=== PATIENT | female | born 1985 | race Caucasian/White ===

== ENCOUNTER 2024-02-29 15:45 | Outpatient (CLI) | payer MEDICARE, MEDICAID, SELFPAY | END 2024-02-29 23:59 | disposition home or self-care (01) | LOC: LAB.DROPOF 03-01 09:46 | PROVIDERS: PCP Family Medicine; Visit Provider Nurse Practitioner Family | DX: N39.0 Urinary tract infection, site not specified (principal) | CPT/HCPCS: 87086; 87088; 87186 ==

== ENCOUNTER 2024-05-16 14:27 | Observation (INO) | payer MEDICARE, MEDICAID, SELFPAY ==
[2024-05-16] VITALS (17 sets, daily range): BP systolic 141–189; BP diastolic 75–119; PULSE 62–102; RESP 12–22; TEMP 36.6–37.2; O2SAT 95–98; BMI 29.7
--- NOTE | 2024-05-16 14:25 | ECG_ITS ---
APPROVED REPORT Exam: Resting ECG HR:76 bpm ECG Measurements Heart Rate 76 AXES OK 272 P 83 QRSd 186 QRS -81 QT 460 T 90 QTc 491 Conclusion ELECTRONIC VENTRICULAR PACEMAKER ABNORMAL RHYTHM ECG Electronically signed by : DIVYA BUCKLEY, 05/17/2024 15:43:23
--- NOTE | 2024-05-16 14:42 | XR_ITS ---
FINAL REPORT CLINICAL HISTORY: CP, high BP COMPARISON: None FINDINGS: Mild cardiomegaly is present. The mediastinum is normal. A left subclavian pacemaker is present. There is no focal infiltrate or edema. There are no pleural effusions. There is no pneumothorax. There is no osseous abnormality. There are rib fractures on the right side involving the 2nd through 5th ribs, that appear chronic. IMPRESSION: No acute cardiopulmonary process Reviewed, Interpreted and Dictated by Lazaro Antonio MD Transcribed by Tiki Zurita Authenticated and [facility]
[2024-05-16 14:54] LABS: Basophils # 0.1 K/mm3 (0-0.2); Basophils % 0.5 % (0.1-2.0); Eosinophils # 0.1 K/mm3 (0.0-0.4); Eosinophils % 1.4 % (0.1-12.0); Hematocrit 40.8 % (37.0-47.0); Hemoglobin 13.5 g/dL (12.2-16.2); Lymphocytes # 2.5 K/mm3 (0.7-4.5); Lymphocytes % 24.8 % (10-50); Mean Corpuscular HGB Conc 33.1 g/dL (31.8-35.4); Mean Corpuscular Hemoglobin 30.2 pg (27.0-31.2); Mean Corpuscular Volume 91.3 fl (81-99); Mean Platelet Volume 10.4 fl (7.4-10.4); Monocytes # 0.5 K/mm3 (0.1-1.0); Monocytes % 5.3 % (1.7-9.3); Neutrophils # 6.7 K/mm3 (1.8-7.8); Neutrophils % 67.8 % (37.0-80.0); Platelet Count 298 K/mm3 (142-424); Red Blood Count 4.47 M/mm3 (4.20-5.40); Red Cell Distribution Width 13.2 % (11.5-17.5); White Blood Count 9.9 K/mm3 (4.8-10.8)
[2024-05-16] MEDS: LABETALOL 20MG/4ML SYRINGE 20 MG IV (14:55)
[2024-05-16] MEDS: NITROGLYCERIN 0.4MG SL TABLET 0.4 MG SL (14:58)
[2024-05-16] MEDS: ONDANSETRON 4MG/2ML VIAL 4 MG IV ×2 (14:59→19:19)
--- NOTE | 2024-05-16 15:02 | ED_ITS ---
Discharge Plan Disposition Patient Disposition: Admitted Condition: Good Clinical Impressions Clinical Impression: Takotsubo cardiomyopathy, Chest pain Discharge ED Provider: Roxi Proctor HPI <Carine Gasca MD - Last Filed: 05/16/24 15:46> General Chief Complaint: Chest Pain Stated Complaint: CP Time Seen by Provider: 05/16/24 14:33 Mode of Arrival: EMS Source of Information: Patient Limitations: No Limitations Description of Symptoms (Recalled from ER Triage Doc. by RN): pt presents to ED with c/o chest pain. symptoms began today approx 1.5 hours ago. pt reports that she has been stressed. pt gets most of care at [facility] in [facility]. pt has extensive heart history and has a pacemaker. History of Present Illness HPI narrative: Patient is a 38-year-old female presenting with chest pain. Patient notes chest pain started approximately 1-1/2 hours prior to arrival and is centrally located. Patient describes pain radiating to her left arm with associated numbness and tingling in her fingertips. Pain also radiates to her left upper abdomen. Patient noted initial diaphoresis and shortness of breath secondary to pain. Patient has a history of Takotsubo cardiomyopathy with prior cardiac arrest and AICD placement. Patient states having an NSTEMI in December 2023 with a negative cardiac cath and an echo with an EF of approximately 20%. Patient states she took aspirin and additional aspirin was given by EMS as well as nitro. Patient states she took her blood pressure at home and it was in the 220s systolics over 100s. Patient currently complaining of headache, chest pain and paresthesias in the fingers of left hand. Related Data Home Medications ?Medication ?Instructions ?Recorded ?Confirmed carvedilol 6.25 mg tablet 6.25 mg PO HS 02/29/24 05/16/24 fluoxetine 40 mg capsule 80 mg PO HS 02/29/24 05/16/24 sacubitril 24 mg-valsartan 26 mg 1 tab PO HS 02/29/24 05/16/24 tablet (Entresto) diclofenac sodium 75 mg 75 mg PO BID 05/16/24 05/16/24 tablet,delayed release hydroxyzine pamoate 25 mg capsule 25 mg PO TID 05/16/24 05/16/24 (Vistaril) Allergies Allergy/AdvReac Type Severity Reaction Status Date / Time ciprofloxacin Allergy Severe Other Verified 02/29/24 15:40 Sulfa (Sulfonamide Allergy Mild Swelling Verified 02/29/24 15:40 Antibiotics) of Lip/Tongue/Throat morphine Allergy Other Verified 05/16/24 15:00 bactrim Allergy Mild Swelling Uncoded 02/29/24 15:40 of Lip/Tongue/Throat pitocin Allergy Mild itching Uncoded 02/29/24 15:40 [facility] <Carine Gasca MD - Last Filed: 05/16/24 15:46> [facility] Disclaimer: The information contained in this section may have been updated after the patient was seen, as this information can be updated by other users. Medical History Urinary tract infection H/O angiography Ureteral stenosis of kidney transplant Depression Kidney stones High blood pressure Takotsubo cardiomyopathy Surgical History (Updated 05/16/24 @ 20:23 by Bonnie Gilman RN) Hx of tonsillectomy History of bladder surgery History of hand surgery Family History (Updated 05/16/24 @ 20:23 by Bonnie Gilman RN) Mother FHx: mental illness Cancer Father Diabetes FHx: mental illness Hypertension Grandfather Diabetes Family/Other Diabetes FHx: mental illness Hypertension Sister FHx: mental illness Grandmother Hypertension Other Metastatic melanoma Social History (Updated 05/16/24 @ 20:23 by Bonnie Gilman RN) Smoking Status: Current every day smoker tobacco type: cigarettes and e- cigarettes alcohol intake: never substance use type: denies use current occupational status: disabled Travel in the last 8 weeks: None Have you lived/traveled outside [place] in past 30 days?: No Contact w/someone who lives/traveled outside US past 30 days?: No Exposure to someone with infectious disease in past 14 days?: No Do you have a fever (greater than 100.4 F or 38 C)?: No Have you tested positive for COVID-19: No Exposed to someone with COVID-19 in past 14 days?: No Do you have a sore throat?: No Do you have a cough?: No Do you have any weakness?: No Are you experiencing any nausea/vomitting?: No Do you have any diarrhea?: No Are you experiencing any unusual bleeding?: No Do you have any muscle aches/pain?: No Do you have any abdominal pain?: No Are you experiencing loss of taste or smell?: No Other Medical History Have you received the Pneumonia Vaccine: No <Carine Gasca MD - Last Filed: 05/16/24 15:46> ROS Obtained: Yes All systems reviewed & no additional complaints except as documented Physical Exam <Carine Gasca MD - Last Filed: 05/16/24 15:46> General General appearance: alert, anxious and in distress Head Head exam: atraumatic Eye Eye exam: Present EOMI; Absent scleral icterus ENT ENT exam: Present normal exam Neck Neck exam: Present full ROM Expanded Neck Exam Neck exam focused ED: Absent JVD Chest Chest inspection: Present symmetric chest wall rise Respiratory Respiratory exam: Present normal lung sounds bilaterally Cardiovascular Cardiovascular exam: Present regular rate and normal rhythm (V paced) Abdominal Exam Abdominal exam: Present soft; Absent distention or tenderness Extremities Exam Extremities exam: Present full ROM; Absent edema Neurological Exam Neurological exam: Present alert and oriented X3 Psychiatric Psychiatric exam: Present normal mood Skin Skin exam: Present warm and dry HEART Score <Carine Gasca MD - Last Filed: 05/16/24 15:46> HEART Score HEART Score assessment performed?: Yes History (anamnesis): Highly suspicious ECG: Non-specific disturbance Age: <45 years Risk factors: 1-2 risk factors Troponin: </= normal limit HEART Score: 4 <Roxi Proctor DO - Last Filed: 05/16/24 22:51> HEART Score HEART Score: 4 Critical Care <Carine Gasca MD - Last Filed: 05/16/24 15:46> Critical Care Time Critical Care Time: Yes Attestation: On 05/16/24, the high probability of a clinically significant, sudden or life threatening deterioration of the following system(s) required my full and direct attention, intervention and personal management. The time I documented below is in addition to time spent performing reported procedures but includes the following listed in this critical care notation. Total Time Total Critical Care Time: 30 Medical Decision Making <Carine Gasca MD - Last Filed: 05/16/24 15:46> Medical Records Medical records reviewed: Yes I reviewed the patient's medical records. Vel Inquiry Pt receiving controlled substance: No Vital Signs Vital Signs: 05/16/24 14:27 05/16/24 14:31 05/16/24 14:55 Temperature 98.9 F Temperature Source Oral Pulse Rate 102 H Pulse Rate [Left Radial] 80 Respiratory Rate 12 22 Blood Pressure 188/101 H 188/101 H Blood Pressure [Right Arm] 188/101 H Blood Pressure Mean Blood Pressure Mean [Right Arm] 130 02 Sat by Pulse Oximetry 96 97 Oxygen Delivery Method Room Air Room Air 05/16/24 15:00 05/16/24 15:27 05/16/24 15:30 Temperature Temperature Source Pulse Rate 89 66 72 Pulse Rate [Left Radial] Respiratory Rate 14 12 12 Blood Pressure 173/119 H 144/100 H 144/91 H Blood Pressure [Right Arm] Blood Pressure Mean Blood Pressure Mean [Right Arm] 02 Sat by Pulse Oximetry 98 98 97 Oxygen Delivery Method Room Air 05/16/24 15:31 05/16/24 16:00 05/16/24 16:23 Temperature Temperature Source Pulse Rate 69 62 Pulse Rate [Left Radial] Respiratory Rate 14 14 Blood Pressure 143/90 H 152/83 H 155/87 H Blood Pressure [Right Arm] Blood Pressure Mean 102 Blood Pressure Mean [Right Arm] 02 Sat by Pulse Oximetry 98 95 Oxygen Delivery Method Room Air Room Air 05/16/24 16:30 05/16/24 17:00 05/16/24 17:30 Temperature Temperature Source Pulse Rate 64 64 63 Pulse Rate [Left Radial] Respiratory Rate 12 13 13 Blood Pressure 147/86 H 141/80 H 148/84 H Blood Pressure [Right Arm] Blood Pressure Mean Blood Pressure Mean [Right Arm] 02 Sat by Pulse Oximetry 97 98 98 Oxygen Delivery Method Room Air Room Air Room Air 05/16/24 18:00 05/16/24 18:30 05/16/24 19:48 Temperature 97.9 F Temperature Source Oral Pulse Rate 62 62 72 Pulse Rate [Left Radial] Respiratory Rate 12 12 16 Blood Pressure 141/80 H 159/85 H 189/82 H Blood Pressure [Right Arm] Blood Pressure Mean Blood Pressure Mean [Right Arm] 02 Sat by Pulse Oximetry 97 95 Oxygen Delivery Method Room Air Room Air Room Air Lab Data Lab results reviewed: Yes I reviewed the patient's lab results. Labs: Lab Results 05/16/24 14:33: WBC 9.9, RBC 4.47, Hgb 13.5, Hct 40.8, MCV 91.3, MCH 30.2, MCHC 33.1, RDW 13.2, Plt Count 298, MPV 10.4, Neut % (Auto) 67.8, Lymph % (Auto) 24.8, [place] % (Auto) 5.3, Eos % (Auto) 1.4, Baso % (Auto) 0.5, Neut # (Auto) 6.7, Lymph # (Auto) 2.5, [place] # (Auto) 0.5, Eos # (Auto) 0.1, Baso # (Auto) 0.1, D- Dimer 0.40, Sodium 142, Potassium 4.0, Chloride 108 H, Carbon Dioxide 23, Anion Gap 15.0, BUN 10, Creatinine 0.50 L, Estimated Creat Clear 215, Estimated GFR 137, Est GFR ( Amer) 165, Glucose 101 H, Calcium 9.3, Total Bilirubin 0.4, AST 26, ALT 21, Alkaline Phosphatase 103, Troponin I 0.02, NT-Pro-B Natriuret Pep 422 H, Total Protein 7.1, Albumin 4.3, Globulin 2.8, Albumin/Globulin Ratio 1.5, Serum HCG, Qual Negative, HCV Ab NAIMA w/Rflx PCR Qn Negative, HIV Ag/Ab Combo Qual Negative 05/16/24 16:53: Troponin I 0.03 05/16/24 14:33 05/16/24 14:33 Response Orders (Tests/Meds): ED MEDICATIONS Generic Name Dose Route Start Last Admin Trade Name Freq PRN Reason Stop Dose Admin Belladonna Alkaloids 60 ml 05/16/24 22:03 05/16/24 22:47 Belladonna Alkaloids 60 Ml Ml PO 05/16/24 22:04 60 ml ONCE ONE Administration Carvedilol 6.25 mg 05/17/24 21:00 Carvedilol 6.25mg Tablet PO 06/16/24 20:59 HS LAYNE Famotidine 20 mg 05/16/24 22:04 05/16/24 22:47 Famotidine 20mg/2ml Vial IV 05/16/24 22:05 20 mg ONCE ONE Administration Hydromorphone HCl 1 mg 05/16/24 18:44 05/16/24 19:20 Hydromorphone 2mg/Ml Syringe IV 05/16/24 18:45 1 mg ONCE ONE Administration Hydroxyzine Pamoate 25 mg 05/17/24 09:00 Hydroxyzine Pamoate 25mg Capsule PO 06/16/24 08:59 TID LAYNE Morphine Sulfate 2 mg 05/16/24 22:02 Morphine 2mg/Ml Syringe IV 06/15/24 22:01 Q2HP PRN Severe Pain (7-10) Nitroglycerin 0.4 mg 05/16/24 14:41 05/16/24 14:58 Nitroglycerin 0.4mg Sl Tablet SL 05/17/24 14:42 0.4 mg Q5MINP PRN Administration Chest Pain Non-Formulary Medication 75 mg 05/17/24 09:00 Diclofenac Sodium PO 06/16/24 08:59 BID LAYNE Non-Formulary Medication 80 mg 05/17/24 21:00 Fluoxetine PO 06/16/24 20:59 HS LAYNE Ondansetron HCl 4 mg 05/16/24 18:44 05/16/24 19:19 Ondansetron 4mg/2ml Vial IV 05/16/24 18:45 4 mg ONCE ONE Administration Sacubitril/Valsartan 1 each 05/17/24 21:00 Sacubitril/Valsartan 24-26mg Tablet PO 06/16/24 20:59 HS [facility] Sodium Chloride 8 ml 05/16/24 22:04 05/16/24 22:47 Sodium Chloride 0.9% 10ml Vial IV 06/15/24 22:03 8 ml NEEDED PRN Administration dilute famotidine Discontinued Medications Generic Name Dose Route Start Last Admin Trade Name Freq PRN Reason Stop Dose Admin Hydromorphone HCl 1 mg 05/16/24 14:41 05/16/24 14:57 Hydromorphone 4 Mg/Ml Syringe IV 05/16/24 14:42 1 mg ONCE ONE Administration Labetalol HCl 20 mg 05/16/24 14:41 05/16/24 14:55 Labetalol 20mg/4ml Syringe IV 05/16/24 14:42 20 mg ONCE ONE Administration Ondansetron HCl 4 mg 05/16/24 14:41 05/16/24 14:59 Ondansetron 4mg/2ml Vial IV 05/16/24 14:42 4 mg ONCE ONE Administration ORDERS Category Date Time Status Cardiology Consult [Consult to Cardiology] [CONS] Cons 05/16/24 16:17 Active Routine XR chest portable Stat Exams 05/16/24 14:42 Completed Complete Blood Count Auto Diff Stat Lab 05/16/24 14:33 Completed Comprehensive Metabolic Panel Stat Lab 05/16/24 14:33 Completed D-Dimer Stat Lab 05/16/24 14:33 Completed HCG Qualitative, Serum Stat Lab 05/16/24 14:33 Completed HIV Combo Stat Lab 05/16/24 14:33 Completed Hepatitis C Ab Qual. W/ RFX Stat Lab 05/16/24 14:33 Completed NT Pro Brain Natriuretic Pep. Stat Lab 05/16/24 14:33 Completed Troponin I Q2H Lab 05/16/24 16:53 Completed Troponin I Q2H Lab 05/16/24 19:32 Completed Troponin I Q2H Lab 05/16/24 21:35 Completed Troponin I Q2H Lab 05/16/24 23:45 Ordered Troponin I Stat Lab 05/16/24 14:33 Completed CA echo doppler complete Stat Y 05/16/24 16:30 Completed ECG Data Tracing #1: ECG Narrative: V paced with a rate of 76, PA prolongation at 272, mild QTc prolongation at 491, no significant ST elevation/depression MDM Narrative Medical Decision Narrative: In summary, patient is a 38-year-old female presenting with chest pain. Differential diagnosis includes but is not limited to, ACS, PE, hypertensive emergency, NSTEMI, myocarditis, pneumonia, among others. Patient has a medical history significant for Takotsubo cardiomyopathy s/p AICD and cardiac arrest. Patient is followed by cardiology at [facility] in [place]. Patient evaluated with CBC, CMP, D-dimer, troponin, CXR, EKG, beta-hCG. Medically managed with IV labetalol, Dilaudid, Zofran. Laboratory evaluation significant for no leukocytosis, anemia, thrombocytopenia. CMP with no actionable findings. Beta-hCG negative. CXR personally reviewed by me with appropriately placed AICD leads and AICD in left upper chest, no significant pleural effusion, pneumothorax, acute consolidation. Patient ultimately signed out to oncoming provider pending troponins and continued evaluation of BP management. <Roxi Proctor, DO - Last Filed: 05/16/24 22:51> Vital Signs Vital Signs: 05/16/24 14:27 05/16/24 14:31 05/16/24 14:55 Temperature 98.9 F Temperature Source Oral Pulse Rate 102 H Pulse Rate [Left Radial] 80 Respiratory Rate 12 22 Blood Pressure 188/101 H 188/101 H Blood Pressure [Right Arm] 188/101 H Blood Pressure Mean Blood Pressure Mean [Right Arm] 130 02 Sat by Pulse Oximetry 96 97 Oxygen Delivery Method Room Air Room Air 05/16/24 15:00 05/16/24 15:27 05/16/24 15:30 Temperature Temperature Source Pulse Rate 89 66 72 Pulse Rate [Left Radial] Respiratory Rate 14 12 12 Blood Pressure 173/119 H 144/100 H 144/91 H Blood Pressure [Right Arm] Blood Pressure Mean Blood Pressure Mean [Right Arm] 02 Sat by Pulse Oximetry 98 98 97 Oxygen Delivery Method Room Air 05/16/24 15:31 05/16/24 16:00 05/16/24 16:23 Temperature Temperature Source Pulse Rate 69 62 Pulse Rate [Left Radial] Respiratory Rate 14 14 Blood Pressure 143/90 H 152/83 H 155/87 H Blood Pressure [Right Arm] Blood Pressure Mean 102 Blood Pressure Mean [Right Arm] 02 Sat by Pulse Oximetry 98 95 Oxygen Delivery Method Room Air Room Air 05/16/24 16:30 05/16/24 17:00 05/16/24 17:30 Temperature Temperature Source Pulse Rate 64 64 63 Pulse Rate [Left Radial] Respiratory Rate 12 13 13 Blood Pressure 147/86 H 141/80 H 148/84 H Blood Pressure [Right Arm] Blood Pressure Mean Blood Pressure Mean [Right Arm] 02 Sat by Pulse Oximetry 97 98 98 Oxygen Delivery Method Room Air Room Air Room Air 05/16/24 18:00 05/16/24 18:30 05/16/24 19:48 Temperature 97.9 F Temperature Source Oral Pulse Rate 62 62 72 Pulse Rate [Left Radial] Respiratory Rate 12 12 16 Blood Pressure 141/80 H 159/85 H 189/82 H Blood Pressure [Right Arm] Blood Pressure Mean Blood Pressure Mean [Right Arm] 02 Sat by Pulse Oximetry 97 95 Oxygen Delivery Method Room Air Room Air Room Air Lab Data Labs: Lab Results 05/16/24 14:33: WBC 9.9, RBC 4.47, Hgb 13.5, Hct 40.8, MCV 91.3, MCH 30.2, MCHC 33.1, RDW 13.2, Plt Count 298, MPV 10.4, Neut % (Auto) 67.8, Lymph % (Auto) 24.8, [place] % (Auto) 5.3, Eos % (Auto) 1.4, Baso % (Auto) 0.5, Neut # (Auto) 6.7, Lymph # (Auto) 2.5, [place] # (Auto) 0.5, Eos # (Auto) 0.1, Baso # (Auto) 0.1, D- Dimer 0.40, Sodium 142, Potassium 4.0, Chloride 108 H, Carbon Dioxide 23, Anion Gap 15.0, BUN 10, Creatinine 0.50 L, Estimated Creat Clear 215, Estimated GFR 137, Est GFR ( Amer) 165, Glucose 101 H, Calcium 9.3, Total Bilirubin 0.4, AST 26, ALT 21, Alkaline Phosphatase 103, Troponin I 0.02, NT-Pro-B Natriuret Pep 422 H, Total Protein 7.1, Albumin 4.3, Globulin 2.8, Albumin/Globulin Ratio 1.5, Serum HCG, Qual Negative, HCV Ab NAIMA w/Rflx PCR Qn Negative, HIV Ag/Ab Combo Qual Negative 05/16/24 16:53: Troponin I 0.03 Response Orders (Tests/Meds): ED MEDICATIONS Generic Name Dose Route Start Last Admin Trade Name Freq PRN Reason Stop Dose Admin Belladonna Alkaloids 60 ml 05/16/24 22:03 05/16/24 22:47 Belladonna Alkaloids 60 Ml Ml PO 05/16/24 22:04 60 ml ONCE ONE Administration Carvedilol 6.25 mg 05/17/24 21:00 Carvedilol 6.25mg Tablet PO 06/16/24 20:59 HS [facility] Famotidine 20 mg 05/16/24 22:04 05/16/24 22:47 Famotidine 20mg/2ml Vial IV 05/16/24 22:05 20 mg ONCE ONE Administration Hydromorphone HCl 1 mg 05/16/24 18:44 05/16/24 19:20 Hydromorphone 2mg/Ml Syringe IV 05/16/24 18:45 1 mg ONCE ONE Administration Hydroxyzine Pamoate 25 mg 05/17/24 09:00 Hydroxyzine Pamoate 25mg Capsule PO 06/16/24 08:59 TID [facility] Morphine Sulfate 2 mg 05/16/24 22:02 Morphine 2mg/Ml Syringe IV 06/15/24 22:01 Q2HP PRN Severe Pain (7-10) Nitroglycerin 0.4 mg 05/16/24 14:41 05/16/24 14:58 Nitroglycerin 0.4mg Sl Tablet SL 05/17/24 14:42 0.4 mg Q5MINP PRN Administration Chest Pain Non-Formulary Medication 75 mg 05/17/24 09:00 Diclofenac Sodium PO 06/16/24 08:59 BID LANYE Non-Formulary Medication 80 mg 05/17/24 21:00 Fluoxetine PO 06/16/24 20:59 HS LAYNE Ondansetron HCl 4 mg 05/16/24 18:44 05/16/24 19:19 Ondansetron 4mg/2ml Vial IV 05/16/24 18:45 4 mg ONCE ONE Administration Sacubitril/Valsartan 1 each 05/17/24 21:00 Sacubitril/Valsartan 24-26mg Tablet PO 06/16/24 20:59 HS [facility] Sodium Chloride 8 ml 05/16/24 22:04 05/16/24 22:47 Sodium Chloride 0.9% 10ml Vial IV 06/15/24 22:03 8 ml NEEDED PRN Administration dilute famotidine Discontinued Medications Generic Name Dose Route Start Last Admin Trade Name Freq PRN Reason Stop Dose Admin Hydromorphone HCl 1 mg 05/16/24 14:41 05/16/24 14:57 Hydromorphone 4 Mg/Ml Syringe IV 05/16/24 14:42 1 mg ONCE ONE Administration Labetalol HCl 20 mg 05/16/24 14:41 05/16/24 14:55 Labetalol 20mg/4ml Syringe IV 05/16/24 14:42 20 mg ONCE ONE Administration Ondansetron HCl 4 mg 05/16/24 14:41 05/16/24 14:59 Ondansetron 4mg/2ml Vial IV 05/16/24 14:42 4 mg ONCE ONE Administration ORDERS Category Date Time Status Cardiology Consult [Consult to Cardiology] [CONS] Cons 05/16/24 16:17 Active Routine XR chest portable Stat Exams 05/16/24 14:42 Completed Complete Blood Count Auto Diff Stat Lab 05/16/24 14:33 Completed Comprehensive Metabolic Panel Stat Lab 05/16/24 14:33 Completed D-Dimer Stat Lab 05/16/24 14:33 Completed HCG Qualitative, Serum Stat Lab 05/16/24 14:33 Completed HIV Combo Stat Lab 05/16/24 14:33 Completed Hepatitis C Ab Qual. W/ RFX Stat Lab 05/16/24 14:33 Completed NT Pro Brain Natriuretic Pep. Stat Lab 05/16/24 14:33 Completed Troponin I Q2H Lab 05/16/24 16:53 Completed Troponin I Q2H Lab 05/16/24 19:32 Completed Troponin I Q2H Lab 05/16/24 21:35 Completed Troponin I Q2H Lab 05/16/24 23:45 Ordered Troponin I Stat Lab 05/16/24 14:33 Completed CA echo doppler complete Stat Y 05/16/24 16:30 Completed MDM Narrative Medical Decision Narrative: In summary, patient is a 38-year-old female presenting with chest pain. Differential diagnosis includes but is not limited to, ACS, PE, hypertensive emergency, NSTEMI, myocarditis, pneumonia, among others. Patient has a medical history significant for Takotsubo cardiomyopathy s/p AICD and cardiac arrest. Patient is followed by cardiology at [facility] in [place]. Patient evaluated with CBC, CMP, D-dimer, troponin, CXR, EKG, beta-hCG. Medically managed with IV labetalol, Dilaudid, Zofran. Laboratory evaluation significant for no leukocytosis, anemia, thrombocytopenia. CMP with no actionable findings. Beta-hCG negative. CXR personally reviewed by me with appropriately placed AICD leads and AICD in left upper chest, no significant pleural effusion, pneumothorax, acute consolidation. Patient ultimately signed out to oncoming provider pending troponins and continued evaluation of BP management. DO Hitesh: I assumed care of the patient at 1530 at time of departure of previous provider. Troponins x 2 were negative. She had ongoing chest pain, so I did call and have an interactive discussion with cardiology. We interrogated her device and did a stat formal echocardiogram and discussed the case and results with Dr. Rojas with cardiology. He recommended that her EF looks good, so if her pain had gone away she would be appropriate for discharge with outpatient follow-up as long as tropes were negative, however her pain did recur and she was extremely uncomfortable. Given this as well as her history, I feel she would benefit from admission for continued monitoring and serial troponins. I had an interactive discussion with the hospitalist who admitted the patient in stable condition.
[2024-05-16 15:03] LABS: HCG Qualitative, Serum Negative (Negative)
[2024-05-16 15:07] LABS: Alanine Aminotransferase 21 U/L (12-78); Albumin Level 4.3 g/dl (3.5-5.0); Albumin/Globulin Ratio 1.5 (1.1-1.8); Alkaline Phosphatase 103 U/L (38-126); Aspartate Amino Transferase 26 U/L (14-36); Bilirubin,Total 0.4 mg/dl (0.2-1.3); Blood Urea Nitrogen 10 mg/dl (7-17); Calcium 9.3 mg/dl (8.4-10.2); Carbon Dioxide 23 mmol/L (22.0-30.0); Chloride 108 mmol/L (98-107); Creatinine Clearance Estimated 215 mL/min (50-200); Estimated Glomerular Filt Rate 137 ml/min (>60); GFR (African American) 165 ML/MIN (>60); Globulin 2.8 g/dL (1.3-3.2); Glucose 101 mg/dl (74-100); Sodium 142 mmol/L (136-145); Total Protein,Serum 7.1 g/dl (6.3-8.2)
[2024-05-16 15:16] LABS: NT Pro Brain Natriuretic Pep. 422 pg/mL (0-125)
[2024-05-16 15:19] LABS: Troponin I 0.02 ng/ml (0.00-0.034)
--- NOTE | 2024-05-16 15:45 | ECG_ITS ---
APPROVED REPORT Exam: Resting ECG HR:64 bpm ECG Measurements Heart Rate 64 AXES CA 270 P 52 QRSd 193 QRS -69 QT 521 T 80 QTc 530 Conclusion ELECTRONIC VENTRICULAR PACEMAKER Electronically signed by : BASILIA ORTIZ, 05/16/2024 23:57:24
--- NOTE | 2024-05-16 16:30 | CA_ITS ---
APPROVED REPORT EXAM: Comprehensive 2D, Doppler, and color-flow Echocardiogram Stitch Cleaner: Mirna Wright RT(R) Ht: 5 ft 9 in Wt: 201lbs BSA: 2.07 BP: 144/91 mmHg Indications: CP, HTN, ICD, reported history of stress cardiomyopathy,, previous cardiac arrest, NSTEMI 12/2023, states EF 12/2023 was 20% per patient. Patient is seen at [facility] by cardiology 2D Dimensions EF AP4 58.60 % GL Strain -12.6 % M-Mode Dimensions RVDd 3.74 cm (0.9-2.6) LA Diam 4.43 cm (1.9-4.0) LVDd 5.44 cm (3.5-5.7) LVDs 3.95 cm (3.5-5.7) IVSd 1.19 cm (0.6-1.1) PWd 1.10 cm (0.6-1.1) EF (Teich) 52.70% FS 27.40% EDV (Teich) 143.70 mL ESV (Teich) 67.90 mL LV Diastology E Decel Time 207 (160-240 msec) E/A Ratio 0.7 Mitral Valve MV E Max Andrew. 59.0 (40-130 cm/s) MV A Velocity 79.0 (40-130 cm/s) E/A Ratio 0.75 MV PHT 61.0 ms Left Ventricle The left ventricle is normal size. The left ventricular systolic function is normal. The left ventricular ejection fraction is within the normal range. There is marked asymmetric increase in LV wall thickness. IVSD is 1.5 cm. There is no evidence of LVOT obstruction at rest. There is normal LV segmental wall motion. Transmitral Doppler flow pattern suggests impaired LV relaxation. LVEF is 60%. Right Ventricle The right ventricle is normal size. The right ventricular systolic function is normal. There is a device lead in the right ventricle. Atria The left atrium size is normal. The right atrium size is normal. There is no Doppler evidence of interatrial shunt. Aortic Valve The aortic valve is mildly thickened. There is no aortic valvular stenosis. No aortic regurgitation is present. Mitral Valve The mitral valve leaflets are mildly thickened. No evidence of systolic anterior motion. Trace mitral regurgitation. No evidence of mitral valve stenosis. Tricuspid Valve The tricuspid valve leaflets are thin and pliable. Trace tricuspid regurgitation. There is insufficient TR jet to estimate RVSP. Trace pulmonic regurgitation. Pulmonic Valve The pulmonary valve is normal in structure. Great Vessels The aortic root is normal in size. The ascending aorta is not well-visualized. IVC is normal in size and collapses >50% with inspiration. Pericardium There is no pericardial effusion. Other Information Study Quality: Fair Conclusion Normal biventricular systolic function (LVEF 60%). Marked increase in LV wall thickness. IVSD is 1.5 cm. No significant valvular stenosis or regurgitation. In the setting of asymmetric increase in LV wall thickness (IVSd 1.5 cm), further outpatient evaluation with cardiac MRI (HCM protocol) is recommended to evaluate for hypertrophic cardiomyopathy. Note the patient has ICD and requires assessment of compatibility with MRI. Electronically signed by : Deborah Garcia MD 05/17/2024 01:08:14
--- NOTE | 2024-05-16 16:31 | PC.NURSE ---
VASCULAR LAB NOTIFIED OF ECHO ORDER
[2024-05-16 17:35] LABS: HIV Combo NEGATIVE (Negative)
[2024-05-16 17:39] LABS: Troponin I 0.03 ng/ml (0.00-0.034)
[2024-05-16 17:42] LABS: Hepatitis C Ab Qual. W/ RFX NEGATIVE (Negative)
--- NOTE | 2024-05-16 18:43 | PC.NURSE ---
resort housekeeper notified of bed placement
--- NOTE | 2024-05-16 18:49 | PC.NURSE ---
PT PROVIDED SUPPER, NO NEEDS AT THIS TIME
--- NOTE | 2024-05-16 19:15 | PC.NURSE ---
Report received from Mike TIMMONS Pt resting quietly in bed Skin pink warm and dry Resp full and easy Speech clear and appropriate. IV site without redness or edema Pt c/o nausea and increased pain. Pt aware of plans for admission.
[2024-05-16] MEDS: HYDROMORPHONE 2MG/ML SYRINGE 1 MG IV (19:20)
--- NOTE | 2024-05-16 19:25 | PC.NURSE ---
Pt medicated for pain and nausea
--- NOTE | 2024-05-16 19:34 | PC.NURSE ---
Pain level 6 on 1-10 scale Report called to Liliana TIMMONS on inpatient unit
--- NOTE | 2024-05-16 19:54 | PC.NURSE ---
Patient arrived to floor via wheelchair from ED at 19:52.
[2024-05-16 20:07] LABS: Troponin I 0.02 ng/ml (0.00-0.034)
[2024-05-16 22:04] LABS: Troponin I 0.02 ng/ml (0.00-0.034)
[2024-05-16] MEDS: SODIUM CHLORIDE 0.9% 10ML VIAL 8 ML IV (22:47)
[2024-05-16] MEDS: FAMOTIDINE 20MG/2ML VIAL 20 MG IV (22:47)
[2024-05-16] MEDS: BELLADONNA ALKALOIDS 60 ML ML PO (22:47)
[2024-05-17] VITALS: PULSE 60
[2024-05-17 00:17] LABS: Troponin I 0.02 ng/ml (0.00-0.034)
--- NOTE | 2024-05-17 00:33 | P.HP_ITS ---
History of Present Illness *Admission Date: 05/16/24 *Reason for visit:: Chest pain *History of present illness: he patient is a 38-year-old female presenting with acute chest pain that began approximately 1.5 hours prior to arrival. The pain is centrally located, radiates to her left arm with associated numbness and tingling in her fingertips, and extends to her left upper abdomen. She initially experienced diaphoresis and shortness of breath secondary to the pain. Her history is signi ficant for Takotsubo cardiomyopathy, prior cardiac arrest, and AICD placement. She reports having an NSTEMI in December 2023 with a negative cardiac catheterization and an echocardiogram revealing an ejection fraction of approximately 20%. She states her systolic blood pressure was in the 220s at home prior to arrival. She took aspirin at home and received additional aspirin and nitroglycerin en route via EMS. At the time of evaluation, her complaints include chest pain, headache, and paresthesias in the fingers of her left hand. Given her presentation and significant cardiac history, the differential diagnosis includes acute coronary syndrome, pulmonary embolism, hypertensive emergency, NSTEMI, myocarditis, pneumonia, or other cardiopulmonary etiologies. Initial management included IV labetalol, Dilaudid, and Zofran, with diagnostic testing comprising CBC, CMP, D-dimer, troponin, beta-hCG, chest X-ray, and EKG. Laboratory results were notable for the absence of leukocytosis, anemia, or thrombocytopenia. CMP revealed no actionable findings. Beta-hCG was negative. Chest X-ray showed no acute abnormalities, with appropriately placed AICD leads and no evidence of effusion, pneumothorax, or consolidation. EKG showed paced rhythm without evidence of ST elevation or depression , troponins were initially negative, but the patient?s chest pain persisted, prompting further evaluation. A formal echocardiogram demonstrated normal ejection fraction, and her AICD was interrogated without concerning findings. After interactive discussions with cardiology and hospital medicine, it was determined that the patient would benefit from admission for continued monitoring, serial troponins, and blood pressure management due to her ongoing symptoms and significant cardiac history. [facility] Disclaimer: The information contained in this section may have been updated after the patient was seen, as this information can be updated by other users. Medical History Urinary tract infection H/O angiography Ureteral stenosis of kidney transplant Depression Kidney stones High blood pressure Takotsubo cardiomyopathy Surgical History Hx of tonsillectomy History of bladder surgery History of hand surgery Family History Mother FHx: mental illness Cancer Father Diabetes FHx: mental illness Hypertension Grandfather Diabetes Family/Other Diabetes FHx: mental illness Hypertension Sister FHx: mental illness Grandmother Hypertension Other Metastatic melanoma Social History Smoking Status: Current every day smoker tobacco type: cigarettes and e- cigarettes alcohol intake: never substance use type: denies use current occupational status: disabled Travel in the last 8 weeks: None Have you lived/traveled outside [place] in past 30 days?: No Contact w/someone who lives/traveled outside [place] past 30 days?: No Exposure to someone with infectious disease in past 14 days?: No Do you have a fever (greater than 100.4 F or 38 C)?: No Have you tested positive for COVID-19: No Exposed to someone with COVID-19 in past 14 days?: No Do you have a sore throat?: No Do you have a cough?: No Do you have any weakness?: No Are you experiencing any nausea/vomitting?: No Do you have any diarrhea?: No Are you experiencing any unusual bleeding?: No Do you have any muscle aches/pain?: No Do you have any abdominal pain?: No Are you experiencing loss of taste or smell?: No Other Medical History Have you received the Flu Vaccine for this season: No Have you received the Pneumonia Vaccine: No Review of Systems Review of Systems Review of systems (narrative): 14 point review of systems negative outside HPI Meds Home Medications and Allergies Home Medications ?Medication ?Instructions ?Recorded ?Confirmed ?Type carvedilol 6.25 mg tablet 6.25 mg PO HS 02/29/24 05/16/24 History fluoxetine 40 mg capsule 80 mg PO HS 02/29/24 05/16/24 History sacubitril 24 mg-valsartan 26 mg 1 tab PO HS 02/29/24 05/16/24 History tablet (Entresto) diclofenac sodium 75 mg 75 mg PO BID 05/16/24 05/16/24 History tablet,delayed release hydroxyzine pamoate 25 mg capsule 25 mg PO TID 05/16/24 05/16/24 History (Vistaril) New Prescriptions to Start Prescriptions: Allergies Allergy/AdvReac Type Severity Reaction Status Date / Time ciprofloxacin Allergy Severe Other Verified 02/29/24 15:40 Sulfa (Sulfonamide Allergy Mild Swelling Verified 02/29/24 15:40 Antibiotics) of Lip/Tongue/Throat morphine Allergy Other Verified 05/16/24 15:00 bactrim Allergy Mild Swelling Uncoded 02/29/24 15:40 of Lip/Tongue/Throat pitocin Allergy Mild itching Uncoded 02/29/24 15:40 Exam Data for Last 24 hours Vital signs and Labs for Last 24 Hours: Temp Pulse Resp BP Pulse Ox O2 Del Method 98.0 F 72 16 151/79 H 96 Room Air 05/16/24 23:44 05/16/24 23:44 05/16/24 23:44 05/16/24 23:44 05/16/24 23:44 05/16/24 23:44 Laboratory Results - last 24 hr 05/16/24 14:33: WBC 9.9, RBC 4.47, Hgb 13.5, Hct 40.8, MCV 91.3, MCH 30.2, MCHC 33.1, RDW 13.2, Plt Count 298, MPV 10.4, Neut % (Auto) 67.8, Lymph % (Auto) 24.8, Mills % (Auto) 5.3, Eos % (Auto) 1.4, Baso % (Auto) 0.5, Neut # (Auto) 6.7, Lymph # (Auto) 2.5, Mills # (Auto) 0.5, Eos # (Auto) 0.1, Baso # (Auto) 0.1, D- Dimer 0.40, Sodium 142, Potassium 4.0, Chloride 108 H, Carbon Dioxide 23, Anion Gap 15.0, BUN 10, Creatinine 0.50 L, Estimated Creat Clear 215, Estimated GFR 137, Est GFR ( Amer) 165, Glucose 101 H, Calcium 9.3, Total Bilirubin 0.4, AST 26, ALT 21, Alkaline Phosphatase 103, Troponin I 0.02, NT-Pro-B Natriuret Pep 422 H, Total Protein 7.1, Albumin 4.3, Globulin 2.8, Albumin/Globulin Ratio 1.5, Serum HCG, Qual Negative, HCV Ab NAIMA w/Rflx PCR Qn Negative, HIV Ag/Ab Combo Qual Negative 05/16/24 16:53: Troponin I 0.03 05/16/24 19:32: Troponin I 0.02 05/16/24 21:35: Troponin I 0.02 05/16/24 23:50: Troponin I 0.02 I & O for Last 24 hours: Intake & Output 05/14/24 05/15/24 05/16/24 05/17/24 23:59 23:59 23:59 23:59 Weight 91.172 kg Constitutional Constitutional: no acute distress *Routine HEENT Exam Head: Present normocephalic Eye: Present EOMI and PERRL ENT: Present mucous membranes moist *Routine Neck Exam Neck: Present supple; Absent lymphadenopathy *Routine Respiratory Exam Respiratory: Present CTA bilaterally *Routine Cardiovascular Exam Cardiovascular: Present RRR *Routine Abdominal Exam Abdominal: Present soft, normoactive bowel sounds and tenderness (Left upper quadrant) *Routine Rectal Exam Rectal:: deferred *Routine Genitalia Exam Genitalia:: deferred *Routine Extremities Exam Extremities: Absent cyanosis, clubbing or edema *Routine Skin Exam Skin: Present warm; Absent rash *Routine Neurological Exam Neurological: Present alert and oriented X3 Assessment and Plan *Assessment and plan (1) Chest pain: Status: Acute Category: Medical Code(s): R07.9 - Chest pain, unspecified (2) High blood pressure: Status: Acute Category: Medical Code(s): I10 - Essential (primary) hypertension (3) Left upper quadrant pain: Status: Acute Category: Medical Code(s): R10.12 - Left upper quadrant pain (4) Obesity (BMI 30.0-34.9): Status: Acute Category: Medical Code(s): E66.811 - Obesity, class 1 Plan Medical decision making: The patient is a 38-year-old female with a significant history of Takotsubo cardiomyopathy, prior cardiac arrest, AICD placement, and recent NSTEMI, presenting with acute chest pain radiating to the left arm and upper abdomen, accompanied by numbness, tingling, headache, and initial diaphoresis. Initial workup, including labs, EKG, and chest X-ray, revealed no acute ischemic changes, and troponins were negative on serial measurements. A formal echocardiogram demonstrated preserved ejection fraction, and AICD interrogation showed no abnormalities. Despite normal findings, her persistent chest pain, elevated initial blood pressure, and high-risk cardiac history warrant admission for close monitoring, serial troponins, and blood pressure management. Cardio logy was consulted, and her current management includes IV labetalol, aspirin, nitroglycerin as needed, and pain control. Further evaluation and treatment will be guided by her clinical course. Recurrent Chest Pain with History of Takotsubo Cardiomyopathy (I25.10): * Admit for continued cardiac monitoring and serial troponins. * Monitor for recurrence of pain and any EKG changes. * Consult cardiology for further recommendations. * Continue aspirin 81 mg daily and administer nitroglycerin as needed for chest pain. * Schedule outpatient follow-up with cardiology post-discharge. Hypertensive Emergency (I16.1): * Administer IV labetalol for acute blood pressure management. * Transition to oral antihypertensives once blood pressure is controlled. * Monitor blood pressure trends and adjust medications as needed. Left Upper Quadrant Pain with Tenderness on Palpation (R10.12): * Evaluate for possible splenic or gastrointestinal pathology as a cause of pain. * US gallbladder in a.m. * Monitor for associated symptoms such as fever, nausea, or vomiting. * Provide pain management analgesics as needed. * Amylase lipase, CMP in a.m. Headache (R51): * Treat with acetaminophen or Dilaudid as needed for pain control. * Assess for resolution of symptoms as blood pressure normalizes. Paresthesias in Left Hand (R20.2): * Monitor for resolution as chest pain improves. * Assess for neurological deficits during admission. History of Takotsubo Cardiomyopathy and AICD Placement (I42.89, Z95.810): * Confirm AICD functioning via interrogation, already completed without abnormalities. * Continue routine monitoring for arrhythmias or device complications. * EF shows improvement from previous Follow-Up: * Repeat troponins in 6 hours. * Monitor blood pressure and ensure adequate control during admission. * Consider stress testing or coronary angiography if symptoms persist or worsen. * Evaluate left upper quadrant pain further with imaging if necessary. * Discharge planning will depend on clinical improvement and cardiology recommendations. * GI prophylaxis with Pepcid Rounded on patient after nurse practitioner. Personally examined and interviewed patient. Agree with exam findings and care plan as documented.
[2024-05-17] MEDS: ONDANSETRON 4MG/2ML VIAL 4 MG IV ×2 (00:38→09:57)
[2024-05-17] MEDS: HYDROMORPHONE 2MG/ML SYRINGE 0.5 MG IV ×2 (00:38→09:58)
[2024-05-17 04:00] VITALS: BP 120/60; PULSE 60; RESP 16; TEMP 36.6; O2SAT 91; BMI 32.1
[2024-05-17 04:47] LABS: Basophils % 0.4 % (0.1-2.0); Eosinophils # 0.2 K/mm3 (0.0-0.4); Eosinophils % 2.4 % (0.1-12.0); Lymphocytes # 3.3 K/mm3 (0.7-4.5); Lymphocytes % 45.4 % (10-50); Mean Corpuscular Hemoglobin 30.7 pg (27.0-31.2); Mean Platelet Volume 10.3 fl (7.4-10.4); Monocytes # 0.6 K/mm3 (0.1-1.0); Monocytes % 7.8 % (1.7-9.3); Neutrophils # 3.1 K/mm3 (1.8-7.8); Neutrophils % 43.7 % (37.0-80.0); Platelet Count 241 K/mm3 (142-424); Red Cell Distribution Width 13.9 % (11.5-17.5)
[2024-05-17 04:50] LABS: Hematocrit 36.1 % (37.0-47.0); Red Blood Count 3.88 M/mm3 (4.20-5.40); White Blood Count 7.2 K/mm3 (4.8-10.8)
[2024-05-17 04:53] LABS: Hemoglobin 11.9 g/dL (12.2-16.2)
[2024-05-17 04:56] LABS: Alanine Aminotransferase 22 U/L (12-78); Albumin Level 3.8 g/dl (3.5-5.0); Albumin/Globulin Ratio 1.5 (1.1-1.8); Alkaline Phosphatase 72 U/L (38-126); Amylase 63 U/L (30-110); Anion Gap 10.4 mEq/L (5-15); Aspartate Amino Transferase 23 U/L (14-36); Bilirubin,Total 0.2 mg/dl (0.2-1.3); Blood Urea Nitrogen 13 mg/dl (7-17); Calcium 8.6 mg/dl (8.4-10.2); Carbon Dioxide 26 mmol/L (22.0-30.0); Chloride 107 mmol/L (98-107); Chol/HDL Ratio 3.3 (1-3.5); Cholesterol 113 mg/dl (140-200); Creatinine Clearance Estimated 166 mL/min (50-200); Estimated Glomerular Filt Rate 93 ml/min (>60); GFR (African American) 112 ML/MIN (>60); Globulin 2.6 g/dL (1.3-3.2); Glucose 87 mg/dl (74-100); HDL Cholesterol 34 mg/dl (40-60); Potassium 3.4 mmoL/L (3.5-5.1); Sodium 140 mmol/L (136-145); Total Protein,Serum 6.4 g/dl (6.3-8.2); Triglycerides 77 mg/dl (30-150); VLDL Cholesterol 15 mg/dL (0-40)
[2024-05-17 04:57] LABS: Lipase 40 U/L (23-300)
[2024-05-17] MEDS: POTASSIUM CHLORIDE 20MEQ TAB 40 MEQ PO ×2 (05:36→09:50)
--- NOTE | 2024-05-17 07:41 | P.DS_ITS ---
General Admission date:: 05/16/24 Discharge date: 05/17/24 HPI HPI HPI: The patient is a 38-year-old female presenting with acute chest pain that began approximately 1.5 hours prior to arrival. The pain is centrally located, radiates to her left arm with associated numbness and tingling in her fingertips, and extends to her left upper abdomen. She initially experienced diaphoresis and shortness of breath secondary to the pain. Her history is significant for Takotsubo cardiomyopathy, prior cardiac arrest, and AICD placement. She reports having an NSTEMI in December 2023 with a negative cardiac catheterization and an echocardiogram revealing an ejection fraction of approximately 20%. She states her systolic blood pressure was in the 220s at home prior to arrival. She took aspirin at home and received additional aspirin and nitroglycerin en route via EMS. At the time of evaluation, her complaints include chest pain, headache, and paresthesias in the fingers of her left hand. Given her presentation and significant cardiac history, the differential diagnosis includes acute coronary syndrome, pulmonary embolism, hypertensive emergency, NSTEMI, myocarditis, pneumonia, or other cardiopulmonary etiologies. Initial management included IV labetalol, Dilaudid, and Zofran, with diagnostic testing comprising CBC, CMP, D-dimer, troponin, beta-hCG, chest X-ray, and EKG. Laboratory results were notable for the absence of leukocytosis, anemia, or thrombocytopenia. CMP revealed no actionable findings. Beta-hCG was negative. Chest X-ray showed no acute abnormalities, with appropriately placed AICD leads and no evidence of effusion, pneumothorax, or consolidation. EKG showed paced rhythm without evidence of ST elevation or depression , troponins were initially negative, but the patient?s chest pain persisted, prompting further evaluation. A formal echocardiogram demonstrated normal ejection fraction, and her AICD was interrogated without concerning findings. After interactive discussions with ca rdiology and hospital medicine, it was determined that the patient would benefit from admission for continued monitoring, serial troponins, and blood pressure management due to her ongoing symptoms and significant cardiac history. Hospital Course Hospital Course Hospital Course: The patient is a 38-year-old female with a significant history of Takotsubo cardiomyopathy, prior cardiac arrest, AICD placement, and recent NSTEMI, presenting with acute chest pain radiating to the left arm and upper abdomen, accompanied by numbness, tingling, headache, and initial diaphoresis. Initial workup, including labs, EKG, and chest X-ray, revealed no acute ischemic changes, and troponins were negative on serial measurements. A formal echocardiogram demonstrated preserved ejection fraction, and AICD interrogation showed no abnormalities. Despite normal findings, her persistent chest pain, elevated initial blood pressure, and high-risk cardiac history warrant admission for close monitoring, serial troponins, and blood pressure management. Her current management includes IV labetalol, aspirin, nitroglycerin as needed, and pain control. Further evaluation and treatment will be guided by her clinical course. Patient did well with echo did not show cardiomyopathy at this time. Troponins remain negative. Does have concerns for HCM. Would benefit from close outpatient follow-up with cardiology for further management. Stable to discharge home with further management as an outpatient. Problems addressed as follows: Recurrent Chest Pain with History of Takotsubo Cardiomyopathy Hypertension -Patient has AICD in place because of her history of Takotsubo. On medical management for heart time home including carvedilol, Entresto. Troponins were negative during admission. Echocardiogram obtained showing preserved EF. No signs of cardiomyopathy at this time. Does have concern for thickened left ventricle suspicious for HCM. Would benefit from close follow-up as an outpatient and further management with further imaging of her heart. Given her hemodynamic stability and resolution of chest pain, continue medical management for hypertension/CHF. Close follow-up with cardiology. Referred to Dr. Crespo for further care. Left Upper Quadrant Pain with Tenderness on Palpation -Abdomen improved. Liver enzymes and lipase normal. Labs remain normal during admission. Recommend [id number] treatment for GERD. Stable to discharge for further treatment as an outpatient. Exam Data for Last 24 hours Vital signs and Labs for Last 24 Hours: Temp Pulse Resp BP Pulse Ox O2 Del Method 97.8 F 60 16 120/60 91 L Room Air 05/17/24 04:00 05/17/24 04:00 05/17/24 04:00 05/17/24 04:00 05/17/24 04:00 05/17/24 06:44 Laboratory Results - last 24 hr 05/16/24 14:33: WBC 9.9, RBC 4.47, Hgb 13.5, Hct 40.8, MCV 91.3, MCH 30.2, MCHC 33.1, RDW 13.2, Plt Count 298, MPV 10.4, Neut % (Auto) 67.8, Lymph % (Auto) 24.8, Hernando % (Auto) 5.3, Eos % (Auto) 1.4, Baso % (Auto) 0.5, Neut # (Auto) 6.7, Lymph # (Auto) 2.5, Hernando # (Auto) 0.5, Eos # (Auto) 0.1, Baso # (Auto) 0.1, D- Dimer 0.40, Sodium 142, Potassium 4.0, Chloride 108 H, Carbon Dioxide 23, Anion Gap 15.0, BUN 10, Creatinine 0.50 L, Estimated Creat Clear 215, Estimated GFR 137, Est GFR ( Amer) 165, Glucose 101 H, Calcium 9.3, Total Bilirubin 0.4, AST 26, ALT 21, Alkaline Phosphatase 103, Troponin I 0.02, NT-Pro-B Natriuret Pep 422 H, Total Protein 7.1, Albumin 4.3, Globulin 2.8, Albumin/Globulin Ratio 1.5, Serum HCG, Qual Negative, HCV Ab NAIMA w/Rflx PCR Qn Negative, HIV Ag/Ab Combo Qual Negative 05/16/24 16:53: Troponin I 0.03 05/16/24 19:32: Troponin I 0.02 05/16/24 21:35: Troponin I 0.02 05/16/24 23:50: Troponin I 0.02 05/17/24 04:36: WBC 7.2 D, RBC 3.88 L, Hgb 11.9 L D, Hct 36.1 L, MCV 93.0, MCH 30.7, MCHC 33.0, RDW 13.9, Plt Count 241, MPV 10.3, Neut % (Auto) 43.7, Lymph % (Auto) 45.4, Hernando % (Auto) 7.8, Eos % (Auto) 2.4, Baso % (Auto) 0.4, Neut # (Auto) 3.1, Lymph # (Auto) 3.3, Hernando # (Auto) 0.6, Eos # (Auto) 0.2, Baso # (Auto) 0.0, Sodium 140, Potassium 3.4 L, Chloride 107, Carbon Dioxide 26, Anion Gap 10.4, BUN 13 D, Creatinine 0.70 D, Estimated Creat Clear 166, Estimated GFR 93, Est GFR ( Amer) 112 D, Glucose 87, Calcium 8.6, Magnesium 2.0, Total Bilirubin 0.2, AST 23, ALT 22, Alkaline Phosphatase 72, Total Protein 6.4, Albumin 3.8 D, Globulin 2.6, Albumin/Globulin Ratio 1.5, Triglycerides 77, Cholesterol 113 L, LDL Cholesterol Direct 59.60 L, VLDL Cholesterol 15, HDL Cholesterol 34 L, Cholesterol/HDL Ratio 3.3, Amylase 63, Lipase 40 I & O for Last 24 hours: Intake & Output 05/14/24 05/15/24 05/16/24 05/17/24 23:59 23:59 23:59 23:59 Intake Total 480 / 480 Output Total 0 / 0 Balance 480 / 480 Weight 91.172 kg 98.248 kg Constitutional Constitutional: no acute distress, obese and cooperative *Routine HEENT Exam Head: Present normocephalic Eye: Present EOMI and PERRL ENT: Present mucous membranes moist *Routine Neck Exam Neck: Present supple; Absent lymphadenopathy Routine Chest/Breast/Axilla Exam Chest wall: Absent tenderness *Routine Respiratory Exam Respiratory: Present CTA bilaterally; Absent rhonchi, wheezes or crackles *Routine Cardiovascular Exam Cardiovascular: Present RRR *Routine Abdominal Exam Abdominal: Present soft and normoactive bowel sounds; Absent tenderness *Routine Rectal Exam Patient deferred: visual exam *Routine Exam Patient deferred: external exam *Routine Extremities Exam Extremities: Absent cyanosis, clubbing or edema *Routine Skin Exam Skin: Present warm; Absent rash *Routine Neurological Exam Neurological: Present alert, oriented X3 and moving all extremities; Absent altered mental status Results Data Completed and Pending Labs on day of discharge: Labs from last 24 hours 05/17/24 05/16/24 05/16/24 04:36 23:50 21:35 WBC 7.2 D RBC 3.88 L Hgb 11.9 L D Hct 36.1 L MCV 93.0 MCH 30.7 MCHC 33.0 RDW 13.9 Plt Count 241 MPV 10.3 Neut % (Auto) 43.7 Lymph % (Auto) 45.4 Hernando % (Auto) 7.8 Eos % (Auto) 2.4 Baso % (Auto) 0.4 Neut # (Auto) 3.1 Lymph # (Auto) 3.3 Hernando # (Auto) 0.6 Eos # (Auto) 0.2 Baso # (Auto) 0.0 D-Dimer Sodium 140 Potassium 3.4 L Chloride 107 Carbon Dioxide 26 Anion Gap 10.4 BUN 13 D Creatinine 0.70 D Estimated Creat Clear 166 Estimated GFR 93 Est GFR ( Amer) 112 D Glucose 87 Calcium 8.6 Magnesium 2.0 Total Bilirubin 0.2 AST 23 ALT 22 Alkaline Phosphatase 72 Troponin I 0.02 0.02 NT-Pro-B Natriuret Pep Total Protein 6.4 Albumin 3.8 D Globulin 2.6 Albumin/Globulin Ratio 1.5 Triglycerides 77 Cholesterol 113 L LDL Cholesterol Direct 59.60 L VLDL Cholesterol 15 HDL Cholesterol 34 L Cholesterol/HDL Ratio 3.3 Amylase 63 Lipase 40 Serum HCG, Qual HCV Ab NAIMA w/Rflx PCR Qn HIV Ag/Ab Combo Qual 05/16/24 05/16/24 05/16/24 19:32 16:53 14:33 WBC 9.9 RBC 4.47 Hgb 13.5 Hct 40.8 MCV 91.3 MCH 30.2 MCHC 33.1 RDW 13.2 Plt Count 298 MPV 10.4 Neut % (Auto) 67.8 Lymph % (Auto) 24.8 Hernando % (Auto) 5.3 Eos % (Auto) 1.4 Baso % (Auto) 0.5 Neut # (Auto) 6.7 Lymph # (Auto) 2.5 Hernando # (Auto) 0.5 Eos # (Auto) 0.1 Baso # (Auto) 0.1 D-Dimer 0.40 Sodium 142 Potassium 4.0 Chloride 108 H Carbon Dioxide 23 Anion Gap 15.0 BUN 10 Creatinine 0.50 L Estimated Creat Clear 215 Estimated GFR 137 Est GFR ( Amer) 165 Glucose 101 H Calcium 9.3 Magnesium Total Bilirubin 0.4 AST 26 ALT 21 Alkaline Phosphatase 103 Troponin I 0.02 0.03 0.02 NT-Pro-B Natriuret Pep 422 H Total Protein 7.1 Albumin 4.3 Globulin 2.8 Albumin/Globulin Ratio 1.5 Triglycerides Cholesterol LDL Cholesterol Direct VLDL Cholesterol HDL Cholesterol Cholesterol/HDL Ratio Amylase Lipase Serum HCG, Qual Negative HCV Ab NAIMA w/Rflx PCR Qn Negative HIV Ag/Ab Combo Qual Negative DS: Diagnosis Discharge Diagnosis (1) Chest pain: Status: Acute Code(s): R07.9 - Chest pain, unspecified (2) High blood pressure: Status: Acute Code(s): I10 - Essential (primary) hypertension (3) Left upper quadrant pain: Status: Acute Code(s): R10.12 - Left upper quadrant pain Meds Home Medications and Allergies Home Medications ?Medication ?Instructions ?Recorded ?Confirmed ?Type carvedilol 6.25 mg tablet 6.25 mg PO HS 02/29/24 05/16/24 History fluoxetine 40 mg capsule 80 mg PO HS 02/29/24 05/16/24 History sacubitril 24 mg-valsartan 26 mg 1 tab PO HS 02/29/24 05/16/24 History tablet (Entresto) hydroxyzine pamoate 25 mg capsule 25 mg PO TID 05/16/24 05/16/24 History (Vistaril) diclofenac sodium 75 mg 75 mg PO BID PRN pain 30 days #0 05/17/24 05/16/24 Rx tablet,delayed release tabs New Prescriptions to Start Prescriptions: Allergies Allergy/AdvReac Type Severity Reaction Status Date / Time ciprofloxacin Allergy Severe Other Verified 02/29/24 15:40 Sulfa (Sulfonamide Allergy Mild Swelling Verified 02/29/24 15:40 Antibiotics) of Lip/Tongue/Throat morphine Allergy Other Verified 05/16/24 15:00 bactrim Allergy Mild Swelling Uncoded 02/29/24 15:40 of Lip/Tongue/Throat pitocin Allergy Mild itching Uncoded 02/29/24 15:40 Discharge Plan Disposition Patient Disposition: Home, Self-Care Condition: Good Follow up Plan Follow up with: Brendan Garcia MD [Staff Physician] - Enter time for follow up () Prescriptions/Medication Reconciliation: Continued Entresto 24-26 mg tablet 1 tab PO HS carvedilol 6.25 mg tablet 6.25 mg PO HS fluoxetine 40 mg capsule 80 mg PO HS hydroxyzine pamoate [Vistaril] 25 mg Capsule 25 mg PO TID Changed diclofenac sodium 75 mg Tablet,Delayed Release (Dr/Ec) 75 mg PO BID PRN (Reason: pain) 30 Days Qty: 0 0RF Problem Reconciliation Problems Reviewed?: Yes Patient Discharge Instructions ACTIVITY: Continue current activity DIET: continue same diet Patient Instructions: DI for Chest Pain Print Language: Palestinian Providers Primary Care Provider: Rowan Mcpherson Admit Provider: Akshat Carter Attending Provider: Akshat Carter
[2024-05-17 07:48] VITALS: BP 156/59; PULSE 52; RESP 18; TEMP 36.6; O2SAT 99
[2024-05-17 08:00] VITALS: PULSE 60
--- NOTE | 2024-05-20 10:34 | SW/DCPLANNER ---
Spoke with patient on the phone. Patient stated that she is doing good. Patient stated that she is calling to schedule her follow up appointment here todday. Patient stated that she has no concerns or questions at this time. Kay Tolliver
== END 2024-05-17 11:56 | disposition home or self-care (01) ==
LOC: ER 18:41 → 2ND 18:47
PROVIDERS: Nurse Practitioner Family; Student in an Organized Health Care Education/Training Program; Admitting Provider Internal Medicine Adolescent Medicine; Emergency Provider Emergency Medicine; PCP Student in an Organized Health Care Education/Training Program; Visit Provider Internal Medicine Adolescent Medicine
DX: R07.9 Chest pain, unspecified (principal); R10.12 Left upper quadrant pain; I10 Essential (primary) hypertension; E66.9 Obesity, unspecified; Z68.32 Body mass index [BMI] 32.0-32.9, adult; I25.2 Old myocardial infarction; F17.210 Nicotine dependence, cigarettes, uncomplicated; I16.1 Hypertensive emergency; Z79.899 Other long term (current) drug therapy; Z95.0 Presence of cardiac pacemaker
CPT/HCPCS: 36415; 71045; 80053; 80061; 82150; 83690; 83735; 83880; 84484; 84703; 85025; 85378; 86803; 87389; 93005; 93306; 99291; G0378; J1171; J1920; J2405; S0028

== ENCOUNTER 2024-06-29 16:45 | Emergency (ER) | payer MEDICARE, MEDICAID, SELFPAY ==
[2024-06-29] VITALS (10 sets, daily range): BP systolic 148–210; BP diastolic 79–116; PULSE 64–89; RESP 16–18; TEMP 36.6–36.8; O2SAT 96–100; BMI 29.8
--- NOTE | 2024-06-29 16:47 | ECG_ITS ---
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
--- NOTE | 2024-06-29 16:52 | XR_ITS ---
PROCEDURE INFORMATION: Exam: XR Chest Exam date and time: 06/29/2024 4:56 PM Age: 38 years old Clinical indication: Pain; Other: Cp; Additional info: Chest pain TECHNIQUE: Imaging protocol: Radiologic exam of the chest. Views: 1 view. COMPARISON: CR XR CHEST PORTABLE 05/16/2024 2:51 PM FINDINGS: Tubes, catheters and devices: Transvenous pacemaker leads in the heart Lungs: Unremarkable. No consolidation. Pleural spaces: Unremarkable. No pleural effusion. No pneumothorax. Heart/Mediastinum: Unremarkable. No cardiomegaly. Bones/joints: Unremarkable. IMPRESSION: No acute process Stable appearance of the chest
[2024-06-29 17:13] LABS: Albumin Level 4.6 g/dl (3.5-5.0); Chloride 107 mmol/L (98-107); Potassium 3.6 mmoL/L (3.5-5.1); Sodium 139 mmol/L (136-145)
[2024-06-29 17:16] LABS: Alanine Aminotransferase 22 U/L (12-78); Albumin/Globulin Ratio 1.5 (1.1-1.8); Alkaline Phosphatase 82 U/L (38-126); Anion Gap 10.6 mEq/L (5-15); Aspartate Amino Transferase 24 U/L (14-36); Blood Urea Nitrogen 12 mg/dl (7-17); Calcium 9.7 mg/dl (8.4-10.2); Carbon Dioxide 25 mmol/L (22.0-30.0); Creatinine Clearance Estimated 180 mL/min (50-200); Estimated Glomerular Filt Rate 111 ml/min (>60); GFR (African American) 134 ML/MIN (>60); Glucose 120 mg/dl (74-100); Total Protein,Serum 7.6 g/dl (6.3-8.2)
[2024-06-29 17:20] LABS: Basophils % 0.3 % (0.1-2.0); Eosinophils # 0.2 K/mm3 (0.0-0.4); Eosinophils % 1.7 % (0.1-12.0); Hematocrit 40.3 % (37.0-47.0); Hemoglobin 13.6 g/dL (12.2-16.2); Lymphocytes # 2.8 K/mm3 (0.7-4.5); Lymphocytes % 29.8 % (10-50); Mean Corpuscular HGB Conc 33.7 g/dL (31.8-35.4); Mean Corpuscular Hemoglobin 30.7 pg (27.0-31.2); Mean Platelet Volume 10.6 fl (7.4-10.4); Monocytes # 0.5 K/mm3 (0.1-1.0); Monocytes % 5.6 % (1.7-9.3); Neutrophils # 5.8 K/mm3 (1.8-7.8); Neutrophils % 62.4 % (37.0-80.0); Platelet Count 258 K/mm3 (142-424); Red Blood Count 4.43 M/mm3 (4.20-5.40); White Blood Count 9.3 K/mm3 (4.8-10.8)
[2024-06-29 17:21] LABS: Bilirubin,Total 0.1 mg/dl (0.2-1.3)
[2024-06-29 17:28] LABS: Troponin I 0.02 ng/ml (0.00-0.034)
[2024-06-29] MEDS: ONDANSETRON 4MG/2ML VIAL 4 MG IV ×2 (18:01→19:28)
[2024-06-29 18:02] LABS: Coronavirus 19, PCR Not Detected (NotDetected); Influenza A, PCR Not Detected (NotDetected); Influenza B, PCR Not Detected (NotDetected)
[2024-06-29 19:14] LABS: NT Pro Brain Natriuretic Pep. 506 pg/mL (0-125)
[2024-06-29] MEDS: KETOROLAC 30MG/ML VIAL 15 MG IV (19:39)
[2024-06-29 20:12] LABS: Troponin I 0.02 ng/ml (0.00-0.034)
[2024-06-29] MEDS: LORazepam 0.5MG TABLET 0.5 MG PO (20:25)
--- NOTE | 2024-06-29 22:57 | ED_ITS ---
Discharge Plan Disposition Patient Disposition: Home, Self-Care Condition: Good Prescriptions Prescriptions: No Action Entresto 24-26 mg tablet 1 tab PO HS carvedilol 6.25 mg tablet 6.25 mg PO HS fluoxetine 40 mg capsule 80 mg PO HS hydroxyzine pamoate [Vistaril] 25 mg Capsule 25 mg PO TID diclofenac sodium 75 mg Tablet,Delayed Release (Dr/Ec) 75 mg PO BID PRN (Reason: pain) 30 Days Qty: 0 0RF Referrals Follow up/Referrals: Rowan Mcpherson MD [Primary Care Provider] - See instructions Activity Restrictions/Add. Instructions Additional Instructions/Restrictions: You were seen for chest pain. Please follow up with your nanny/household manager this week. Return to the ER for worsening symptoms. Clinical Impressions Clinical Impression: Chest pain Instructions Patient Instructions: DI for Atypical Chest Pain Print Language Print Language: Albanian Discharge ED Provider: Srinath Sena Adult HPI <GREGORY Campa - Last Filed: 06/29/24 23:02> General Chief complaint: Chest Pain Stated complaint: chest pain Time Seen by Provider: 06/29/24 17:25 Mode of Arrival: Wheelchair Source of Information: Patient Description of Symptoms (Recalled from ER Triage Doc. by RN): Patient reports left sided chest pain that began approx 2 hours ago. States her blood pressure was elevated at home and her vision has been blurred and she has been dizzy. History of Present Illness HPI narrative: Patient presents with chest discomfort described as pins and needle and pain with breathing. She reports initially she thought that it was reflux. She does have some nausea and vomiting. She reports that she has had elevated blood pressure. She does have a history of Takotsubo cardiomyopathy. Denies any cough or fever. She does report some dizziness and headache. complaint: Chest pain Onset (ago): hour(s) Location: chest Severity: moderate Quality: other (pins and needles ) Consistency: constant Relieving factors: none Exacerbating factors: none Associated symptoms: negative fever/chills Related Data Home Medications ?Medication ?Instructions ?Recorded ?Confirmed carvedilol 6.25 mg tablet 6.25 mg PO HS 02/29/24 05/16/24 fluoxetine 40 mg capsule 80 mg PO HS 02/29/24 05/16/24 sacubitril 24 mg-valsartan 26 mg 1 tab PO HS 02/29/24 05/16/24 tablet (Entresto) hydroxyzine pamoate 25 mg capsule 25 mg PO TID 05/16/24 05/16/24 (Vistaril) Previous Rx's ?Medication ?Instructions ?Recorded diclofenac sodium 75 mg 75 mg PO BID PRN pain 30 days #0 05/17/24 tablet,delayed release tabs Allergies Allergy/AdvReac Type Severity Reaction Status Date / Time ciprofloxacin Allergy Severe Other Verified 02/29/24 15:40 Sulfa (Sulfonamide Allergy Mild Swelling Verified 02/29/24 15:40 Antibiotics) of Lip/Tongue/Throat morphine Allergy Other Verified 05/16/24 15:00 bactrim Allergy Mild Swelling Uncoded 02/29/24 15:40 of Lip/Tongue/Throat pitocin Allergy Mild itching Uncoded 02/29/24 15:40 PFS <GREGORY Campa - Last Filed: 06/29/24 23:02> [facility] Disclaimer: The information contained in this section may have been updated after the patient was seen, as this information can be updated by other users. Medical History Urinary tract infection H/O angiography Ureteral stenosis of kidney transplant Depression Kidney stones High blood pressure Takotsubo cardiomyopathy Surgical History Hx of tonsillectomy History of bladder surgery History of hand surgery Family History Mother FHx: mental illness Cancer Father Diabetes FHx: mental illness Hypertension Grandfather Diabetes Family/Other Diabetes FHx: mental illness Hypertension Sister FHx: mental illness Grandmother Hypertension Other Metastatic melanoma Social History Smoking Status: Never smoker alcohol intake: never substance use type: denies use current occupational status: disabled Travel in the last 8 weeks: None Have you lived/traveled outside [place] in past 30 days?: No Contact w/someone who lives/traveled outside [place] past 30 days?: No Exposure to someone with infectious disease in past 14 days?: No Do you have a fever (greater than 100.4 F or 38 C)?: No Have you tested positive for COVID-19: No Exposed to someone with COVID-19 in past 14 days?: No Do you have a sore throat?: No Do you have a cough?: No Do you have any weakness?: No Do you have any diarrhea?: No Are you experiencing any unusual bleeding?: No Do you have any muscle aches/pain?: No Do you have any abdominal pain?: No Are you experiencing loss of taste or smell?: No Other Medical History Have you received the Flu Vaccine for this season: No Have you received the Pneumonia Vaccine: No <GREGORY Campa - Last Filed: 06/29/24 23:02> ROS Obtained: Yes Systems reviewed as appropriate & no additional complaints except as documented Physical Exam <GREGORY Campa Last Filed: 06/29/24 23:02> General General appearance: alert and in no apparent distress Head Head exam: atraumatic and normocephalic Eye Eye exam: Present normal appearance and EOMI Chest Chest inspection: Present symmetric chest wall rise Respiratory Respiratory exam: Present normal lung sounds bilaterally; Absent wheezes or stridor Cardiovascular Cardiovascular exam: Present regular rate and normal rhythm; Absent systolic murmur Abdominal Exam Abdominal exam: Present soft; Absent distention, tenderness or guarding Neurological Exam Neurological exam: Present alert and oriented X3 Psychiatric Psychiatric exam: Present normal affect and normal mood Skin Skin exam: Present warm, dry and intact Medical Decision Making <GREGROY Campa - Last Filed: 06/29/24 23:02> Medical Records Screening: Per USPSTF and CDC recommendations, given the prevalence of disease in our region, it is our hospital?s policy to screen for HIV and viral Hepatitis for all patients aged 18 and over and those with ongoing risk factors. Vel Inquiry Pt receiving controlled substance: No Vital Signs: 06/29/24 16:47 06/29/24 16:51 06/29/24 17:00 Temperature 97.9 F Temperature Source Oral Pulse Rate 82 80 Pulse Rate [Radial] 89 Respiratory Rate 16 Blood Pressure 191/84 H 160/102 H Blood Pressure [Right Arm] 210/116 H Blood Pressure Mean Blood Pressure Mean [Right Arm] 147 Blood Pressure Source [Right Arm] Automatic Cuff Blood Pressure Position [Right Arm] Sitting 02 Sat by Pulse Oximetry 97 98 98 Oxygen Delivery Method Room Air Room Air Room Air 06/29/24 17:30 06/29/24 18:00 06/29/24 18:30 Temperature Temperature Source Pulse Rate 83 66 73 Pulse Rate [Radial] Respiratory Rate Blood Pressure 186/91 H 177/89 H 148/80 H Blood Pressure [Right Arm] Blood Pressure Mean 127 Blood Pressure Mean [Right Arm] Blood Pressure Source [Right Arm] Blood Pressure Position [Right Arm] 02 Sat by Pulse Oximetry 97 96 99 Oxygen Delivery Method Room Air Room Air Room Air 06/29/24 19:00 06/29/24 19:30 06/29/24 20:00 Temperature Temperature Source Pulse Rate 67 72 74 Pulse Rate [Radial] Respiratory Rate Blood Pressure 171/88 H 161/80 H 178/82 H Blood Pressure [Right Arm] Blood Pressure Mean 110 Blood Pressure Mean [Right Arm] Blood Pressure Source [Right Arm] Blood Pressure Position [Right Arm] 02 Sat by Pulse Oximetry 99 99 100 Oxygen Delivery Method Room Air Room Air 06/29/24 20:43 06/29/24 20:43 Temperature 98.2 F Temperature Source Oral Pulse Rate 64 64 Pulse Rate [Radial] Respiratory Rate 18 Blood Pressure 185/79 H Blood Pressure [Right Arm] Blood Pressure Mean Blood Pressure Mean [Right Arm] Blood Pressure Source [Right Arm] Blood Pressure Position [Right Arm] 02 Sat by Pulse Oximetry Oxygen Delivery Method Room Air Lab Data Lab Results 06/29/24 16:51: WBC 9.3, RBC 4.43, Hgb 13.6, Hct 40.3, MCV 91.0, MCH 30.7, MCHC 33.7, RDW 13.0, Plt Count 258, MPV 10.6 H, Neut % (Auto) 62.4, Lymph % (Auto) 29.8, [place] % (Auto) 5.6, Eos % (Auto) 1.7, Baso % (Auto) 0.3, Neut # (Auto) 5.8, Lymph # (Auto) 2.8, [place] # (Auto) 0.5, Eos # (Auto) 0.2, Baso # (Auto) 0.0, Sodium 139, Potassium 3.6, Chloride 107, Carbon Dioxide 25, Anion Gap 10.6, BUN 12, Creatinine 0.60, Estimated Creat Clear 180, Estimated GFR 111, Est GFR ( Amer) 134, Glucose 120 H, Calcium 9.7, Total Bilirubin 0.1 L, AST 24, ALT 22, Alkaline Phosphatase 82, Troponin I 0.02, NT-Pro-B Natriuret Pep 506 H, Total Protein 7.6, Albumin 4.6, Globulin 3.0, Albumin/Globulin Ratio 1.5 06/29/24 17:53: SARS-CoV-2 (PCR) Not detected, Influenza A Untype (PCR) Not detected, Influenza Type B (PCR) Not detected 06/29/24 19:43: Troponin I 0.02 06/29/24 16:51 06/29/24 16:51 Orders (Tests/Meds): ED MEDICATIONS Discontinued Medications Generic Name Dose Route Start Last Admin Trade Name Freq PRN Reason Stop Dose Admin Ketorolac Tromethamine 15 mg 06/29/24 19:31 06/29/24 19:39 Ketorolac 30mg/Ml Vial IV 06/29/24 19:32 15 mg ONCE ONE Administration Lorazepam 0.5 mg 06/29/24 20:21 06/29/24 20:25 Lorazepam 0.5mg Tablet PO 06/29/24 20:22 0.5 mg ONCE ONE Administration Ondansetron HCl 4 mg 06/29/24 18:00 06/29/24 18:01 Ondansetron 4mg/2ml Vial IV 06/29/24 18:01 4 mg ONCE ONE Administration Ondansetron HCl 4 mg 06/29/24 19:05 06/29/24 19:28 Ondansetron 4mg/2ml Vial IV 06/29/24 19:06 4 mg ONCE ONE Administration ORDERS Category Date Time Status XR chest portable Stat Exams 06/29/24 16:52 Completed BNP [NT Pro Brain Natriuretic Pep.] Stat Lab 06/29/24 16:51 Completed Complete Blood Count Auto Diff Stat Lab 06/29/24 16:51 Completed Comprehensive Metabolic Panel Stat Lab 06/29/24 16:51 Completed Rapid PCR Covid and Flu A/B Stat Lab 06/29/24 17:53 Completed Troponin I Q3H Lab 06/29/24 19:43 Completed Troponin I Stat Lab 06/29/24 16:51 Completed Medical Decision Narrative: In summary patient is a 38-year-old female who presents the emergency department for evaluation of chest pain. Patient is hypertensive upon arrival, afebrile. Unremarkable physical exam. Differential diagnosis includes ACS, CHF, pneumonia. Initial workup will be conducted with labs, EKG, chest x-ray. Initial workup reviewed by me unremarkable. Upon repeat evaluation patient has had acceptable resolution of symptoms. Given this patient is appropriate for discharge home with instructions to follow-up with her nanny/household manager. <Srinath Sena MD - Last Filed: 06/29/24 23:11> Vital Signs: 06/29/24 16:47 06/29/24 16:51 06/29/24 17:00 Temperature 97.9 F Temperature Source Oral Pulse Rate 82 80 Pulse Rate [Radial] 89 Respiratory Rate 16 Blood Pressure 191/84 H 160/102 H Blood Pressure [Right Arm] 210/116 H Blood Pressure Mean Blood Pressure Mean [Right Arm] 147 Blood Pressure Source [Right Arm] Automatic Cuff Blood Pressure Position [Right Arm] Sitting 02 Sat by Pulse Oximetry 97 98 98 Oxygen Delivery Method Room Air Room Air Room Air 06/29/24 17:30 06/29/24 18:00 06/29/24 18:30 Temperature Temperature Source Pulse Rate 83 66 73 Pulse Rate [Radial] Respiratory Rate Blood Pressure 186/91 H 177/89 H 148/80 H Blood Pressure [Right Arm] Blood Pressure Mean 127 Blood Pressure Mean [Right Arm] Blood Pressure Source [Right Arm] Blood Pressure Position [Right Arm] 02 Sat by Pulse Oximetry 97 96 99 Oxygen Delivery Method Room Air Room Air Room Air 06/29/24 19:00 06/29/24 19:30 06/29/24 20:00 Temperature Temperature Source Pulse Rate 67 72 74 Pulse Rate [Radial] Respiratory Rate Blood Pressure 171/88 H 161/80 H 178/82 H Blood Pressure [Right Arm] Blood Pressure Mean 110 Blood Pressure Mean [Right Arm] Blood Pressure Source [Right Arm] Blood Pressure Position [Right Arm] 02 Sat by Pulse Oximetry 99 99 100 Oxygen Delivery Method Room Air Room Air 06/29/24 20:43 06/29/24 20:43 Temperature 98.2 F Temperature Source Oral Pulse Rate 64 64 Pulse Rate [Radial] Respiratory Rate 18 Blood Pressure 185/79 H Blood Pressure [Right Arm] Blood Pressure Mean Blood Pressure Mean [Right Arm] Blood Pressure Source [Right Arm] Blood Pressure Position [Right Arm] 02 Sat by Pulse Oximetry Oxygen Delivery Method Room Air Lab Data Lab Results 06/29/24 16:51: WBC 9.3, RBC 4.43, Hgb 13.6, Hct 40.3, MCV 91.0, MCH 30.7, MCHC 33.7, RDW 13.0, Plt Count 258, MPV 10.6 H, Neut % (Auto) 62.4, Lymph % (Auto) 29.8, [place] % (Auto) 5.6, Eos % (Auto) 1.7, Baso % (Auto) 0.3, Neut # (Auto) 5.8, Lymph # (Auto) 2.8, [place] # (Auto) 0.5, Eos # (Auto) 0.2, Baso # (Auto) 0.0, Sodium 139, Potassium 3.6, Chloride 107, Carbon Dioxide 25, Anion Gap 10.6, BUN 12, Creatinine 0.60, Estimated Creat Clear 180, Estimated GFR 111, Est GFR ( Amer) 134, Glucose 120 H, Calcium 9.7, Total Bilirubin 0.1 L, AST 24, ALT 22, Alkaline Phosphatase 82, Troponin I 0.02, NT-Pro-B Natriuret Pep 506 H, Total Protein 7.6, Albumin 4.6, Globulin 3.0, Albumin/Globulin Ratio 1.5 06/29/24 17:53: SARS-CoV-2 (PCR) Not detected, Influenza A Untype (PCR) Not detected, Influenza Type B (PCR) Not detected 06/29/24 19:43: Troponin I 0.02 Orders (Tests/Meds): ED MEDICATIONS Discontinued Medications Generic Name Dose Route Start Last Admin Trade Name Diegoq PRN Reason Stop Dose Admin Ketorolac Tromethamine 15 mg 06/29/24 19:31 06/29/24 19:39 Ketorolac 30mg/Ml Vial IV 06/29/24 19:32 15 mg ONCE ONE Administration Lorazepam 0.5 mg 06/29/24 20:21 06/29/24 20:25 Lorazepam 0.5mg Tablet PO 06/29/24 20:22 0.5 mg ONCE ONE Administration Ondansetron HCl 4 mg 06/29/24 18:00 06/29/24 18:01 Ondansetron 4mg/2ml Vial IV 06/29/24 18:01 4 mg ONCE ONE Administration Ondansetron HCl 4 mg 06/29/24 19:05 06/29/24 19:28 Ondansetron 4mg/2ml Vial IV 06/29/24 19:06 4 mg ONCE ONE Administration ORDERS Category Date Time Status XR chest portable Stat Exams 06/29/24 16:52 Completed BNP [NT Pro Brain Natriuretic Pep.] Stat Lab 06/29/24 16:51 Completed Complete Blood Count Auto Diff Stat Lab 06/29/24 16:51 Completed Comprehensive Metabolic Panel Stat Lab 06/29/24 16:51 Completed Rapid PCR Covid and Flu A/B Stat Lab 06/29/24 17:53 Completed Troponin I Q3H Lab 06/29/24 19:43 Completed Troponin I Stat Lab 06/29/24 16:51 Completed Medical Decision Narrative: In summary patient is a 38-year-old female who presents the emergency department for evaluation of chest pain. Patient is hypertensive upon arrival, afebrile. Unremarkable physical exam. Differential diagnosis includes ACS, CHF, pneumonia. Initial workup will be conducted with labs, EKG, chest x-ray. Initial workup reviewed by me unremarkable. Upon repeat evaluation patient has had acceptable resolution of symptoms. Given this patient is appropriate for discharge home with instructions to follow-up with her nanny/household manager. I was consulted by the CHELLY, and we discussed the complexity of the problems being addressed.I approved the treatment and management plan for this patient?s care in the Emergency Department, thus performing a substantive portion of the medical decision making.Signed, MD ELIZABETH StreeterA Critical Care <GREGORY Campa - Last Filed: 06/29/24 23:02> Critical Care Time Critical Care Time: No
== END 2024-06-29 20:45 | disposition home or self-care (01) ==
PROVIDERS: Physician Assistant; Emergency Provider Emergency Medicine; PCP Student in an Organized Health Care Education/Training Program
DX: R07.9 Chest pain, unspecified (principal); R42 Dizziness and giddiness; R51.9 Headache, unspecified
CPT/HCPCS: 71045; 80053; 83880; 84484; 85025; 87636; 93005; 96374; 96375; 96376; 99284; J1885; J2405